=== PATIENT | male | born 1950 | race Caucasian/White ===

== ENCOUNTER 2019-12-17 19:16 | Emergency (ER) | payer MEDICARE ==
[~2019-12-17] VITALS: Ht 170.1 cm; Wt 77.1 kg
[~2019-12-17 19:16] MED LIST: ANAPROX DS550 MG PO; ANTIVERT/2525 MG PO; ANXIETY PILL; CELEXA10 MG PO; CENTRUM SILVER1 EAC3 PO; CHEWABLE ASPIRI81 MG PO; CLARITIN10 MG PO; CLEOCIN HCL150 MG PO; CLINDAMYCIN150 MG PO; EES400 MG PO; FISH OIL CONC1000 M1 PO; FLONASE ALLERG9.9 ML NS; HYDROCODONE BIT1 T11 PO; KENALOG 0.5% CR15 GM T; MEDROL DOSEPAK4 MG PO; MULTIPLE VITAMI1 CAP PO; NKHM; NO DAILY MEDS; PREDNISONE10 MG PO; PROAIR HFA8.5 GM INH; PROBIOTIC250 MG PO; RANITIDINE150 MG PO; SINGULAIR10 M1 PO; VIBRAMYCIN100 MG PO; VICODIN 5/500 505 MG PO; VICODIN ES 7501 TAB PO; ZITHROMAX250 MG PO
[2019-12-17] MEDS ORDERED: PREDNISONE20 M1 PO (21:06)
[2019-12-17] MEDS ORDERED: TESSALON PERLE100 M1 PO (21:06)
[2019-12-17] MEDS ORDERED: PROAIR HFA8.5 GM INH (21:06)
== END 2019-12-17 21:15 | disposition home or self-care (01) ==
LOC: ED 19:16
DX: R05 Cough (principal); K21.9 Gastro-esophageal reflux disease without esophagitis; F17.200 Nicotine dependence, unspecified, uncomplicated; Z88.0 Allergy status to penicillin; Z79.899 Other long term (current) drug therapy; Z89.029 Acquired absence of unspecified finger(s)

== ENCOUNTER 2020-08-23 17:33 | Inpatient (IN) | payer MEDICARE ==
[~2020-08-23] VITALS: Ht 170.1 cm; Wt 75.4 kg
[~2020-08-23 17:33] MED LIST changes: +PREDNISONE20 M1 PO; +TESSALON PERLE100 M1 PO
[2020-08-23 18:26] VITALS: BP 107/62
[2020-08-23 19:34] LABS: CLARITY CLOUDY (CLEAR); COLOR DARK YELLOW (YELLOW)
[2020-08-23 19:35] LABS: BACTERIA 1+; BILIRUBIN 1+; BLOOD 1+ (NEGATIVE); EPITHELIAL CELLS TNTC; GLUCOSE NEGATIVE; KETONE TRACE; LEUKO ESTERASE 2+ (NEGATIVE); NITRITE POSITIVE (NEGATIVE); PH 5.5 (4.5-8.0); SPECIFIC GRAVITY >= 1.030 (1.001-1.030); WBC TNTC wbc/hpf (0-5)
[2020-08-23 20:12] LABS: BASO # 0.1 10*3/uL (0.0-0.1); BASO % 0.7 % (0.0-1.0); EOS # 0.1 10*3/uL (0.0-0.4); EOS % 1.2 % (1.0-4.0); HEMATOCRIT 44.5 % (42.0-52.0); LYMPH # 1.4 10*3/uL (1.3-4.4); LYMPH % 12.7 % (27.0-41.0); MEAN CELL VOLUME 90.6 fl (80.0-94.0); MEAN CORPUSCULAR HGB 29.5 pg (27.0-31.0); MEAN CORPUSCULAR HGB CONC 32.6 g/dl (33.0-37.0); MEAN PLATELET VOLUME 8.8 fl (9.6-12.3); MONO # 1.3 10*3/uL (0.1-1.0); MONO % 11.5 % (3.0-9.0); NEUT % 73.7 % (47.0-73.0); PLATELET COUNT AUTOMATED 427 10*3/uL (130-400); RED BLOOD COUNT 4.91 10*6/uL (4.50-5.90); RED CELL DISTRI WIDTH 13.3 % (0-14.5); WHITE BLOOD COUNT 10.8 10*3/uL (4.8-10.8)
[2020-08-23 20:29] LABS: ALKALINE PHOSPHATASE 98 U/L (45-117); BUN 22 mg/dl (7-24); CHLORIDE 103 mmol/L (98-107); CREATININE 0.99 mg/dL (0.70-1.30); LIPASE 48 U/L (73-393); POTASSIUM 3.9 mmol/L (3.5-5.1); SGOT/AST 11 IU/L (3-35); SGPT/ALT 18 U/L (12-78); SODIUM 136 mmol/L (136-145); TOTAL PROTEIN 7.2 gm/dL (6.4-8.2)
[2020-08-23 20:30] LABS: TROPONIN I < 0.015 ng/ml (<0.045)
--- NOTE | 2020-08-23 20:38 | NUR ---
PATIENT RESTING AT THIS TIME. IN A POSITION OF COMFORT. NOTES THAT HE IS STILL HAVING SOME MILD ABDOMINAL PAIN. STATES MEDICATION HELPED "A LITTLE BIT". CALL LIGHT IN REACH. NS INFUSING.
[2020-08-24 00:03] VITALS: BP 142/74
[2020-08-24 01:05] VITALS: BP 140/94
--- NOTE | 2020-08-24 01:05 | NUR ---
Time: 104 A 70 year old MALE admitted to under services of YAIR BATISTA DO. Pt. arrived via STRETCHER from ER. Chief complaint: ABDOMINAL/R SIDE/BACK PAIN, CONSTIPATION X SEVERAL DAYS, NAUSEA/VOMITING X 2 WEEKS. SHAHRAM CRUZ
[2020-08-24] MEDS ORDERED: PRILOSEC20 M1 PO (01:24)
[2020-08-24] MEDS ORDERED: CENTRUM SILVER1 EAC3 PO (01:45)
--- NOTE | 2020-08-24 01:45 | NUR ---
MED REC UP TO DATE PER PT RECALL.
--- NOTE | 2020-08-24 02:01 | NUR ---
NOTIFIED OF MED REC UP TO DATE. ALSO MADE AWARE OF PT'S REQUEST FOR PODIATRY TO SEE HIM AND CUT TOENAILS. PT HAVING PAIN IN LOWER ABDOMEN. NOW RATING 6/10. DISCUSSED ADMITTING DX ASCITES BUT LFTs WNL. INSTRUCTED TO GIVE TYLENOL FIRST AND IF INEFFECTIVE, CALL.
--- NOTE | 2020-08-24 02:09 | NUR ---
PO TYLENOL AND PO DULCOLAX GIVEN WITH SMALL SIPS OF WATER. PT C/O PAIN IN LOWER ABDOMEN RATED 6/10 AND CONSTIPATION FOR "SEVERAL DAYS."
--- NOTE | 2020-08-24 02:48 | NUR ---
PT REMINDED OF NPO STATUS FOR US ABDOMEN. VERBALIZES UNDERSTANDING.
--- NOTE | 2020-08-24 03:05 | NUR ---
NO FURTHER C/O PAIN FROM PT. EARLIER TYLENOL APPEARS EFFECTIVE.
--- NOTE | 2020-08-24 05:34 | NUR ---
PODIATRY RESIDENT CALLED REGARDING CONSULT. SPOKE TO DR.BRITAIN MELARA. NO NEW ORDERS.
--- NOTE | 2020-08-24 07:48 | NUR ---
24 HR chart check completed.
[2020-08-24 08:00] VITALS: BP 125/84
--- NOTE | 2020-08-24 08:00 | NUR ---
Patient resting quietly with no c/o discomfort. Respirations easy and regular. Vital signs stable. No overt distress. ELIZABETH JARVIS
[2020-08-24 09:15] LABS: ACT PARTIAL THROMBO TIME 32.2 SECONDS (20.0-32.1); INTERNATIONAL NORM RATIO 1.1 (2.0-3.5)
[2020-08-24 12:00] VITALS: BP 118/90
--- NOTE | 2020-08-24 13:30 | NUR ---
BANDAGE D/I TO ANTERIOR LLQ S/P PARACENTISIS.
[2020-08-24 16:00] VITALS: BP 119/75
--- NOTE | 2020-08-24 16:00 | NUR ---
Patient resting quietly with no c/o discomfort. Respirations easy and regular. Vital signs stable. No overt distress. ELIZABETH JARVIS
[2020-08-24 16:23] LABS: BODY FLUID WBC 549 /uL
[2020-08-24 19:05] LABS: BF LYMPHOCYTES 16 %; BF MACROPHAGES 68 %; BF MESOTHELIALS 2 %; BF NEUTROPHILS 2 %
[2020-08-24 20:00] VITALS: BP 132/83; BP 132/99
--- NOTE | 2020-08-24 21:31 | NUR ---
NOTIFIED DR. CAGLE PATIENT IS REQUESTING TUMS.
--- NOTE | 2020-08-24 22:23 | NUR ---
PATIENT MEDICATED WITH TUMS AT THIS TIME FOR HEARTBURN. WILL CONTINUE TO MONITOR.
[2020-08-25] VITALS: BP 112/71
--- NOTE | 2020-08-25 | NUR ---
PATIENT STATES SOLEDAD HELPED
--- NOTE | 2020-08-25 02:05 | NUR ---
PATIENT SLEEPING, NO SIGNS OF DISTRESS. RESPIRATIONS EASY, NON LABORED. BED IN LOWEST POSITION,CALL LIGHT WITHIN REACH. WILL CONTINUE TO MONITOR.
[2020-08-25 06:54] LABS: BASO # 0.1 10*3/uL (0.0-0.1); BASO % 0.7 % (0.0-1.0); EOS # 0.4 10*3/uL (0.0-0.4); LYMPH # 1.4 10*3/uL (1.3-4.4); LYMPH % 15.9 % (27.0-41.0); MEAN CELL VOLUME 89.4 fl (80.0-94.0); MEAN CORPUSCULAR HGB 29.1 pg (27.0-31.0); MEAN CORPUSCULAR HGB CONC 32.6 g/dl (33.0-37.0); MEAN PLATELET VOLUME 9.1 fl (9.6-12.3); MONO # 1.2 10*3/uL (0.1-1.0); MONO % 13.9 % (3.0-9.0); NEUT # 5.7 10*3/uL (2.3-7.9); NEUT % 65.3 % (47.0-73.0); PLATELET COUNT AUTOMATED 377 10*3/uL (130-400); RED BLOOD COUNT 4.36 10*6/uL (4.50-5.90); RED CELL DISTRI WIDTH 13.2 % (0-14.5); WHITE BLOOD COUNT 8.7 10*3/uL (4.8-10.8)
[2020-08-25 07:23] LABS: ALBUMIN 2.6 gm/dl (3.1-4.5); CHLORIDE 103 mmol/L (98-107); CREATININE 0.78 mg/dL (0.70-1.30); POTASSIUM 3.7 mmol/L (3.5-5.1); SGOT/AST 16 IU/L (3-35); SGPT/ALT 21 U/L (12-78); SODIUM 136 mmol/L (136-145)
[2020-08-25 07:31] LABS: ALKALINE PHOSPHATASE 92 U/L (45-117); BUN 14 mg/dl (7-24); CHOLESTEROL 93 mg/dL (<200); HDL CHOLESTEROL 34 mg/dl (40-60); LDL CHOLESTEROL 41 mg/dL (9-159); TOTAL PROTEIN 6.2 gm/dL (6.4-8.2); TRIGLYCERIDES 89 mg/dl (<150); VLDL CHOLESTEROL 18 mg/dL (6-40)
[2020-08-25 08:00] VITALS: BP 126/86
[2020-08-25 08:13] LABS: VITAMIN D, 25-HYDROXY 39.3 ng/mL (30-100)
--- NOTE | 2020-08-25 08:30 | NUR ---
PT RESTING IN BED. RESP-EASY AND REGULAR. TOLERATED ROUTINE MED WITH NO PROBLEM. NO C/O AT THIS TIME. CALL LIGHT IN REACH. SEE SHIFT ASSESSMENT.
--- NOTE | 2020-08-25 10:09 | NUR ---
PT C/O HEARTBURN, MEDICATED WITH TUMS PO PER PRN ORDER, SEE EMAR. CALL LIGHT IN REACH.
--- NOTE | 2020-08-25 11:00 | NUR ---
STATES MEDICATION EFFECTIVE. CALL LIGHT IN REACH.
[2020-08-25 12:00] VITALS: BP 119/87
[2020-08-25 16:00] VITALS: BP 117/75
--- NOTE | 2020-08-25 16:10 | NUR ---
RESTING IN BED. NO C/O AT THIS TIME. CALL LIGHT IN REACH. SEE SHIFT ASSESSMENT.
[2020-08-25 20:00] VITALS: BP 105/72
--- NOTE | 2020-08-25 21:13 | NUR ---
PATIENT C/O HEART BURN. REQUESTING TUMS. MEDICATED AT THIS TIME WITH PRN TUMS. ALSO GIVEN A MILK AND AN ICE CREAM. WILL COTINUE TO MONITOR.
[2020-08-26] VITALS: BP 99/63
--- NOTE | 2020-08-26 01:13 | NUR ---
PATIENT SLEEPING. NO SIGNS OF DISTRESS. VSS. RESPIRATIONS EASY. NON LABORED. BED IN LOWEST POSITION,CALL LIGHT WITHIN REACH. WILL CONTINUE TO MONITOR.
--- NOTE | 2020-08-26 07:30 | NUR ---
PT RESTING IN BED EATING BREAKFAST. RESPS EASY AND NON LABORED. NO S/S OF DISTRESS NOTED. VSS. WHITE BOARD UPDATED. POC DISCUSSED W PT. A/O X3. BOWEL SOUNDS X4 QUADS. PT DENIES ABD PAIN/TENDERNESS. STATES IT IS JUST A GENERAL DISCOMFORT FEELING. NO FURTHER EPISODES OF NAUSEA/VOMITING NOTED. WILL CONTINUE TO MONITOR. CALL LIGHT WITHIN REACH.
[2020-08-26 08:00] VITALS: BP 127/98
--- NOTE | 2020-08-26 09:00 | NUR ---
CM in to see patient. Discussed any home care needs such as nursing or therapy at home upon discharge. He declines home health care services. He states he would like to follow with a liver specialist as both his mother and father dies due to liver problems. His father had Hep C and his mother had cirrhosis. He will reach out to his physician to see about a referral. When medically stable he will be discharged to home. CM will continue to follow for any discharge planning needs.
[2020-08-26] MEDS ORDERED: LASIX20 MG PO (09:47)
[2020-08-26] MEDS ORDERED: CALCIUM CARBON200 MG PO (09:48)
[2020-08-26] MEDS ORDERED: OMEPRAZOLE MAGN20 MG PO (09:48)
--- NOTE | 2020-08-26 10:30 | NUR ---
Discharge instructions reviewed with patient/family. Patient receptive and verbalizes understanding. Follow-up care arranged. Written instructions given to patient/family. TIM SHANE The Discharge Plan/Instructions have been completed. Hep Lock discontinued. Site asymptomatic. Pressure applied. Sterile dressing applied. TIM SHANE
== END 2020-08-26 10:30 | disposition home or self-care (01) | DRG 433 ==
LOC: ED 17:33 → EDHOLD 23:10 → 4E 23:10
PROVIDERS: Emergency Medicine; Internal Medicine; ADMIT Student in an Organized Health Care Education/Training Program; ATTEND Student in an Organized Health Care Education/Training Program
PROC: 0HBRXZZ Excision of Toe Nail, External Approach (ICD-10-PCS; principal; 2020-08-24)
PROC: 0W9G3ZZ Drainage of Peritoneal Cavity, Percutaneous Approach (ICD-10-PCS; principal; 2020-08-24)
DX: K70.31 Alcoholic cirrhosis of liver with ascites (principal); E44.0 Moderate protein-calorie malnutrition; K21.9 Gastro-esophageal reflux disease without esophagitis; R73.9 Hyperglycemia, unspecified; D47.3 Essential (hemorrhagic) thrombocythemia; R82.71 Bacteriuria; F17.210 Nicotine dependence, cigarettes, uncomplicated; B35.1 Tinea unguium; Z68.26 Body mass index [BMI] 26.0-26.9, adult; F32.9 Major depressive disorder, single episode, unspecified; Z88.0 Allergy status to penicillin; Z79.51 Long term (current) use of inhaled steroids; Z79.899 Other long term (current) drug therapy

== ENCOUNTER 2020-08-30 18:35 | Observation (INO) | payer MEDICARE ==
[~2020-08-30] VITALS: Ht 170.1 cm; Wt 74.8 kg
[~2020-08-30 18:35] MED LIST changes: +CALCIUM CARBON200 MG PO; +LASIX20 MG PO; +OMEPRAZOLE MAGN20 MG PO; +PRILOSEC20 M1 PO
[2020-08-30 18:49] VITALS: BP 108/90
[2020-08-30 20:51] LABS: HEMATOCRIT 45.9 % (42.0-52.0); MEAN CELL VOLUME 88.3 fl (80.0-94.0); MEAN CORPUSCULAR HGB 29.2 pg (27.0-31.0); MEAN CORPUSCULAR HGB CONC 33.1 g/dl (33.0-37.0); MEAN PLATELET VOLUME 8.9 fl (9.6-12.3); PLATELET COUNT AUTOMATED 511 10*3/uL (130-400); RED CELL DISTRI WIDTH 13.3 % (0-14.5); WHITE BLOOD COUNT 9.1 10*3/uL (4.8-10.8)
[2020-08-30 20:55] LABS: CLARITY Cloudy (Clear); COLOR Dark Yellow (Yellow)
[2020-08-30 20:56] LABS: BILIRUBIN 1+; BLOOD Negative (Negative); GLUCOSE Negative; KETONE Negative; LEUKO ESTERASE 1+ (Negative); NITRITE Negative (Negative); SPECIFIC GRAVITY 1.025 (1.001-1.030)
[2020-08-30 20:58] LABS: RBC 0-2 rbc/hpf (0-2)
[2020-08-30 20:59] LABS: BACTERIA TRACE; EPITHELIAL CELLS 16-20; HYALINE CAST TNTC; MUCOUS TRACE; WBC 21-30 wbc/hpf (0-5)
[2020-08-30 21:02] LABS: ACT PARTIAL THROMBO TIME 29.5 SECONDS (20.0-32.1); INTERNATIONAL NORM RATIO 1.1 (2.0-3.5)
[2020-08-30 21:07] LABS: CREATININE 1.42 mg/dL (0.70-1.30); POTASSIUM 3.7 mmol/L (3.5-5.1); TOTAL PROTEIN 7.2 gm/dL (6.4-8.2)
[2020-08-30 21:14] LABS: TOTAL CELLS COUNTED 100 #CELLS
[2020-08-30 21:17] LABS: PLATELET SUFFICIENCY HIGH (NORMAL)
--- NOTE | 2020-08-30 21:20 | NUR ---
PT. RESTING IN BED WATCHING TV. IN NO DISTRESS, RR EASY AND NON LABORED. CALL LIGHT IN REACH. WILL CONT TO MONITOR.
[2020-08-30 22:02] VITALS: BP 110/76
--- NOTE | 2020-08-30 22:03 | NUR ---
PT. RESTING WATCHING TV. CALL LIGHT IN REACH. IN NO DISTRESS, RR EASY AND NONLABORED. WILL CONT TO MONITOR.
--- NOTE | 2020-08-30 22:32 | NUR ---
Time: 2232 A 70 year old MALE admitted to under services of NISHA HERRERA DO, Pt. arrived via stretcher from ER. Chief complaint: ABD PAIN. LEDA ANDERSON
[2020-08-30 22:33] VITALS: BP 121/80
--- NOTE | 2020-08-30 22:53 | NUR ---
DR CAGLE AWARE OF [employer]ME SE[employer] CALLING AND STATING THAT THE RADIOLOGIST RECOMMENDS HYDRATING BEFORE AND AFTER SCAN.
--- NOTE | 2020-08-30 23:00 | NUR ---
ABDOMINAL CIRCUMFERENCE 47 CM
--- NOTE | 2020-08-31 00:05 | NUR ---
DR CAGLE STATES PATIENT DOES NOT HAVE TO DRINK SECOND BOTTLE OF CT CONTRAST DUE TO NAUSEA
--- NOTE | 2020-08-31 02:47 | NUR ---
MEDICATED WITH PRN ZOFRAN FOR C/O NAUSEA AND VOMITTING. WILL MONITOR
[2020-08-31 03:29] LABS: CREATININE 1.45 mg/dL (0.70-1.30); POTASSIUM 3.6 mmol/L (3.5-5.1)
--- NOTE | 2020-08-31 03:30 | NUR ---
MEDICATION EFFECTIVE PER PATIENT
--- NOTE | 2020-08-31 05:08 | NUR ---
PATIENT HAD SMALL GREEN EMESIS.
[2020-08-31 06:32] LABS: HEMATOCRIT 44.8 % (42.0-52.0); MEAN CELL VOLUME 88.5 fl (80.0-94.0); MEAN CORPUSCULAR HGB 29.1 pg (27.0-31.0); MEAN CORPUSCULAR HGB CONC 32.8 g/dl (33.0-37.0); MEAN PLATELET VOLUME 9.1 fl (9.6-12.3); PLATELET COUNT AUTOMATED 477 10*3/uL (130-400); RED BLOOD COUNT 5.06 10*6/uL (4.50-5.90); RED CELL DISTRI WIDTH 13.3 % (0-14.5); WHITE BLOOD COUNT 8.4 10*3/uL (4.8-10.8)
[2020-08-31 06:33] LABS: ALBUMIN 2.9 gm/dl (3.1-4.5); BUN 32 mg/dl (7-24); CHLORIDE 92 mmol/L (98-107); CREATININE 1.32 mg/dL (0.70-1.30); POTASSIUM 3.5 mmol/L (3.5-5.1); SGOT/AST 27 IU/L (3-35); SGPT/ALT 44 U/L (12-78); SODIUM 131 mmol/L (136-145)
[2020-08-31 06:35] LABS: ALKALINE PHOSPHATASE 97 U/L (45-117); TOTAL PROTEIN 6.8 gm/dL (6.4-8.2)
[2020-08-31 07:03] LABS: BASOPHILS 2 % (0-1); BURR CELLS FEW; PLATELET SUFFICIENCY HIGH (NORMAL); TOTAL CELLS COUNTED 100 #CELLS
[2020-08-31 07:04] LABS: POLYCHROMASIA SLIGHT
[2020-08-31 08:00] VITALS: BP 128/83
--- NOTE | 2020-08-31 08:00 | NUR ---
IN TO ROOM. PATIENT AWAKE, ALERT AND ORIENTED. PT DENIES ANY PAIN BUT COMPLAINS OF NAUSEA AT THIS TIME. RESPIRATIONS ARE EASY AND REGULAR, NO SOB NOTED. PT ABLE TO REPOSITION SELF AND IS ENCOURAGED TO DO SO. BED IN LOWEST LOCKED POSITION AND CALL LIGHT WITHIN REACH. WILL CONTINUE TO MONITOR.
--- NOTE | 2020-08-31 08:12 | NUR ---
PT MEDICATED WITH PRN ZOFRAN FOR NAUSEA AT THIS TIME. WILL MONITOR FOR EFFECTIVENESS.
--- NOTE | 2020-08-31 09:00 | NUR ---
PT STATES ZOFRAN WAS EFFECTIVE.
--- NOTE | 2020-08-31 09:00 | NUR ---
Rattan Worker in to talk to patient. Patient states lives at home with . There are 14 steps in the home. Physician: chung galvan Pharmacy: [facility] services: none Patient's level of ADLs: INDEPENDENT Patient has working utilities: all working DME: none Follow-up physician's appointment after d/c: will be made by hospitalist nurse director upon discharge Does patient want to access PORTAL?: no Discharge plan discussed with patient, he states he lives at home with , is independent in adls and ambulation but states he feels weak at this time, discussed with him a short term assisted for 5 days of therapy and 24 hour care. he declined. also discussed [facility] and educated him on the services they provide, he was agreeable to this, given choice of companies he chose [facility], will send a referral to [facility] for when patient is discharged. case management will follow. IRASEMA TAYLOR
--- NOTE | 2020-08-31 11:56 | NUR ---
case management faxed patient's [facility] order and face to face
[2020-08-31 12:00] VITALS: BP 122/89
[2020-08-31 16:00] VITALS: BP 104/81
--- NOTE | 2020-08-31 17:30 | NUR ---
PT COMPLAINS OF DIARRHEA AT THIS TIME. STATES HE HAS HAD [address] MONACO NOTIFIED.
--- NOTE | 2020-08-31 19:19 | NUR ---
RECIEVED REPORT FROM PREVIOUS RN.
--- NOTE | 2020-08-31 19:48 | NUR ---
ASSUMED CARE OF PATIENT. PATIENT IS AAOX3 RESTING IN BED WITH EASY AND REGULAR RESPERS ON ROOM AIR. ASSESSMENT IS COMPLETE WITH NO C/O OR S/S OF DISTRESS NOTED AT THIS TIME. BED IS LOW, LOCKED, AND CALL LIGHT IS WITHIN REACH. WILL CONTNINUE TO MONITOR, SEE INTERVENTIONS.
[2020-08-31 20:00] VITALS: BP 114/71
--- NOTE | 2020-08-31 20:49 | NUR ---
ATTEMPTED TO CONTACT RESIDENT FOR PATIENT C/O DIARRHEA. WILL TRY AGAIN.
--- NOTE | 2020-08-31 21:30 | NUR ---
DR. CAGLE CONTACTED. PATIENT C/O DIARRHEA. ORDERED TO OBTAIN STOOL SAMPLE.
[2020-09-01] VITALS: BP 100/61
--- NOTE | 2020-09-01 06:00 | NUR ---
PATIENT HAS NOT HAD BOWEL MOVEMENT ALL SHIFT.
[2020-09-01 08:00] VITALS: BP 100/69
--- NOTE | 2020-09-01 08:15 | NUR ---
PT RESTING IN BED. RESP-EASY AND REGULAR. NO C/O AT THIS TIME. CALL LIGHT IN REACH. SEE SHIFT ASSESSMENT.
--- NOTE | 2020-09-01 09:00 | NUR ---
case management visits with patient, patient was eating and tolerating breakfast. he stated he will return home when discharged. case management will notify [facility] when patient is discharged
[2020-09-01 10:18] LABS: BASO # 0.1 10*3/uL (0.0-0.1); EOS # 0.4 10*3/uL (0.0-0.4); EOS % 3.9 % (1.0-4.0); LYMPH # 0.8 10*3/uL (1.3-4.4); LYMPH % 8.2 % (27.0-41.0); MEAN CELL VOLUME 90.1 fl (80.0-94.0); MEAN CORPUSCULAR HGB 29.6 pg (27.0-31.0); MEAN CORPUSCULAR HGB CONC 32.8 g/dl (33.0-37.0); MONO % 10.5 % (3.0-9.0); NEUT # 7.3 10*3/uL (2.3-7.9); NEUT % 76.1 % (47.0-73.0); PLATELET COUNT AUTOMATED 380 10*3/uL (130-400); RED BLOOD COUNT 4.33 10*6/uL (4.50-5.90); RED CELL DISTRI WIDTH 13.6 % (0-14.5); WHITE BLOOD COUNT 9.6 10*3/uL (4.8-10.8)
[2020-09-01 10:38] LABS: ALBUMIN 2.5 gm/dl (3.1-4.5); ALKALINE PHOSPHATASE 90 U/L (45-117); BUN 25 mg/dl (7-24); CHLORIDE 96 mmol/L (98-107); CREATININE 1.15 mg/dL (0.70-1.30); POTASSIUM 3.4 mmol/L (3.5-5.1); SGOT/AST 23 IU/L (3-35); SGPT/ALT 36 U/L (12-78); SODIUM 131 mmol/L (136-145)
[2020-09-01 12:00] VITALS: BP 111/81
[2020-09-01] MEDS ORDERED: ZOFRAN4 MG PO (12:27)
[2020-09-01] MEDS ORDERED: FLAGYL500 MG PO (12:27)
[2020-09-01] MEDS ORDERED: CIPRO500 MG PO (12:27)
--- NOTE | 2020-09-01 13:38 | NUR ---
Discharge instructions reviewed with patient/family. Patient receptive and verbalizes understanding. Follow-up care arranged. Written instructions given to patient/family. [place] REMOVED. ESCORTED VIA WHEELCHAIR FOR DISCHARGE. GREG HUMPHREY
== END 2020-09-01 13:38 | disposition home or self-care (01) ==
LOC: ED 18:35 → EDHOLD 21:38 → 4E 22:07
PROVIDERS: Emergency Medicine; Family Medicine; Internal Medicine; ADMIT Internal Medicine; ATTEND Internal Medicine
DX: E87.1 Hypo-osmolality and hyponatremia (principal); K52.9 Noninfective gastroenteritis and colitis, unspecified; N17.0 Acute kidney failure with tubular necrosis; K70.31 Alcoholic cirrhosis of liver with ascites; R82.71 Bacteriuria; R00.0 Tachycardia, unspecified; E44.0 Moderate protein-calorie malnutrition; R73.9 Hyperglycemia, unspecified; D47.3 Essential (hemorrhagic) thrombocythemia; D72.810 Lymphocytopenia; K74.60 Unspecified cirrhosis of liver; K21.9 Gastro-esophageal reflux disease without esophagitis; E87.8 Other disorders of electrolyte and fluid balance, not elsewhere classified; F32.9 Major depressive disorder, single episode, unspecified; J30.2 Other seasonal allergic rhinitis

== ENCOUNTER 2020-09-12 08:57 | Inpatient (IN) | payer MEDICARE ==
[~2020-09-12] VITALS: Ht 170.1 cm; Wt 70.0 kg
[~2020-09-12 08:57] MED LIST changes: +CIPRO500 MG PO; +FLAGYL500 MG PO; +ZOFRAN4 MG PO
[2020-09-12 09:03] VITALS: BP 103/81
[2020-09-12 09:34] LABS: BASO # 0.1 10*3/uL (0.0-0.1); BASO % 0.8 % (0.0-1.0); EOS # 0.1 10*3/uL (0.0-0.4); EOS % 0.7 % (1.0-4.0); HEMATOCRIT 43.6 % (42.0-52.0); LYMPH # 1.3 10*3/uL (1.3-4.4); MEAN CELL VOLUME 87.7 fl (80.0-94.0); MEAN PLATELET VOLUME 8.4 fl (9.6-12.3); MONO # 1.2 10*3/uL (0.1-1.0); NEUT # 9.3 10*3/uL (2.3-7.9); NEUT % 77.2 % (47.0-73.0); PLATELET COUNT AUTOMATED 535 10*3/uL (130-400); RED BLOOD COUNT 4.97 10*6/uL (4.50-5.90); RED CELL DISTRI WIDTH 13.9 % (0-14.5)
[2020-09-12 09:45] LABS: INTERNATIONAL NORM RATIO 1.1 (2.0-3.5)
[2020-09-12 09:52] LABS: ALBUMIN 2.7 gm/dl (3.1-4.5); ALKALINE PHOSPHATASE 76 U/L (45-117); BUN 23 mg/dl (7-24); CHLORIDE 94 mmol/L (98-107); CREATININE 1.59 mg/dL (0.70-1.30); LIPASE 132 U/L (73-393); POTASSIUM 4.1 mmol/L (3.5-5.1); SGOT/AST 21 IU/L (3-35); SGPT/ALT 20 U/L (12-78); SODIUM 129 mmol/L (136-145); TOTAL PROTEIN 6.8 gm/dL (6.4-8.2)
[2020-09-12 09:58] LABS: TROPONIN I < 0.015 ng/ml (<0.045)
[2020-09-12] MEDS ORDERED: ALDACTONE25 M1 PO (11:45)
[2020-09-12] MEDS ORDERED: BAYER ASPIRIN C81 MG PO (11:46)
[2020-09-12] MEDS ORDERED: COLACE100 MG PO (11:48)
--- NOTE | 2020-09-12 15:15 | NUR ---
Time: 1514 A 70 year old MALE admitted to 5E under services of NISHA HERRERA DO, Pt. arrived via ambulatory from ER. Chief complaint: ABDOMINL PAIN, GENERALIZED. JAYLYN GAVIRIA
[2020-09-12 16:00] VITALS: BP 122/87
--- NOTE | 2020-09-12 16:37 | NUR ---
DR. CLARKE'S ANSWERING SERVICE NOTIFIED OF CONSULT.
[2020-09-12] MEDS ORDERED: LASIX20 MG PO (18:01)
[2020-09-12 18:08] LABS: BODY FLUID WBC 218 /uL
[2020-09-12 19:27] LABS: BF LYMPHOCYTES 34 %; BF MACROPHAGES 40 %; BF MESOTHELIALS 6 %; BF NEUTROPHILS 8 %
[2020-09-12 20:00] VITALS: BP 117/73
--- NOTE | 2020-09-12 21:21 | NUR ---
24 HR chart check completed.
--- NOTE | 2020-09-12 22:00 | NUR ---
RESTING WITH HOB ELEVATED. RESPIRATIONS EASY. LUNGS DIMINISHED, CLEAR. PULSE OX 97% RA. ABD DISTENDED WITH HYPO BOWEL SOUNDS; BANDAID MAINTAINED R ABD. TRACE BLE EDEMA. CALL LIGHT WITHIN REACH. NO VOICED COMPLAINTS
--- NOTE | 2020-09-12 22:13 | NUR ---
MEDICATED WITH MORPHINE IV PER PRN ORDER FOR COMPLAINTS OF ABD PAIN RATING A 6. ALSO MEDICATED WITH RESTORIL TO ASSIST WITH SLEEP. WILL MONITOR
--- NOTE | 2020-09-12 23:00 | NUR ---
MEDS APPEAR EFFECTIVE. SLEEPING. RESPIRATIONS EASY. CALL LIGHT WITHIN REACH
[2020-09-12 23:16] LABS: BILIRUBIN Negative (Negative); BLOOD Negative (Negative); CLARITY Cloudy (Clear); COLOR Yellow (Yellow); GLUCOSE Negative (Negative); KETONE Trace (Negative); LEUKO ESTERASE Trace (Negative); NITRITE Negative (Negative); SPECIFIC GRAVITY 1.015 (1.001-1.030)
[2020-09-12 23:25] LABS: BACTERIA 1+; WBC 51-100 wbc/hpf (0-5)
[2020-09-13] VITALS: BP 106/75
--- NOTE | 2020-09-13 | NUR ---
SLEEPING. NO DISTRESS NOTED. RESPIRATIONS EASY. VSS. CALL LIGHT WITHIN REACH
--- NOTE | 2020-09-13 06:19 | NUR ---
MEDICATED WITH MORPHINE IV PER PRN ORDER FOR C/O ABD PAIN RATING A 6. WILL MONITOR
[2020-09-13 06:23] LABS: BASO # 0.1 10*3/uL (0.0-0.1); BASO % 0.4 % (0.0-1.0); EOS # 0.1 10*3/uL (0.0-0.4); EOS % 0.4 % (1.0-4.0); HEMATOCRIT 41.4 % (42.0-52.0); LYMPH # 0.9 10*3/uL (1.3-4.4); LYMPH % 6.5 % (27.0-41.0); MEAN CELL VOLUME 88.7 fl (80.0-94.0); MEAN CORPUSCULAR HGB 29.8 pg (27.0-31.0); MEAN CORPUSCULAR HGB CONC 33.6 g/dl (33.0-37.0); MEAN PLATELET VOLUME 8.6 fl (9.6-12.3); MONO # 1.5 10*3/uL (0.1-1.0); MONO % 10.3 % (3.0-9.0); NEUT # 11.8 10*3/uL (2.3-7.9); NEUT % 82.1 % (47.0-73.0); PLATELET COUNT AUTOMATED 504 10*3/uL (130-400); RED BLOOD COUNT 4.67 10*6/uL (4.50-5.90); RED CELL DISTRI WIDTH 14.1 % (0-14.5); WHITE BLOOD COUNT 14.4 10*3/uL (4.8-10.8)
[2020-09-13 06:40] LABS: ALBUMIN 2.4 gm/dl (3.1-4.5); ALKALINE PHOSPHATASE 69 U/L (45-117); BUN 26 mg/dl (7-24); CHLORIDE 95 mmol/L (98-107); CREATININE 1.36 mg/dL (0.70-1.30); FREE T4 1.35 ng/dl (0.76-1.46); POTASSIUM 4.2 mmol/L (3.5-5.1); SGOT/AST 23 IU/L (3-35); SGPT/ALT 17 U/L (12-78); SODIUM 130 mmol/L (136-145); TOTAL PROTEIN 6.3 gm/dL (6.4-8.2)
--- NOTE | 2020-09-13 06:54 | NUR ---
STATES EARLIER MEDS HELPING. CALL LIGHT WITHIN REACH. NO FURTHER VOICED COMPLAINTS
[2020-09-13 08:00] VITALS: BP 103/73
--- NOTE | 2020-09-13 09:00 | NUR ---
Radio Time Sales Supervisor in to talk to patient. Patient states lives at home with and son. There are 14 steps in the home. Physician: veronique hendrickson Pharmacy: [facility] health services: [facility] Patient's level of ADLs: MODERATE ASSIST Patient has working utilities: all working DME: cane Follow-up physician's appointment after d/c: will be made by hospitalist nurse director upon discharge Does patient want to access PORTAL?: no Discharge plan discussed with patient, he states he lives at home with and son, he states he uses a cane for ambulation and needs minimal assistance with adls, he currently has [facility] seeing him at home. discussed with him being in the hospital frequently and possibly not being able to properly care for self at home and not ambulating well, going to a short term penitentiary for 5 days of therapy and 24 hour care prior to returning home. patient stated he didn't want to go to a penitentiary facility he would rather return home and continue his [facility]. case management will discuss this with patient again after physical therapy has evaluated him. IRASEMA TAYLOR
[2020-09-13 12:00] VITALS: BP 106/68
--- NOTE | 2020-09-13 14:00 | NUR ---
PHYSICAL THERAPY Physical Therapy evaluation completed on with full evaluation to follow. Recommend physical therapy per plan of care, pt could benefit from short term rehab due to impaired balance decreased endurance but states he has family with him at home, someone there "at all time" and agreeable to HH. If to go home recommend 24 hr care with family HH f/u pt has abhilashe did not want to utilize FWW at this time Thank you for this referral. Sabrina Ross PT
--- NOTE | 2020-09-13 14:05 | NUR ---
Occupational Therapy evaluation completed on five with full evaluation to follow. Recommend occupational therapy per plan of care and SNF versus home with HH with 24/06 supervision pending patient progression upon discharge. Thank you for this referral. Belkys Stiles OTR/L
[2020-09-13 16:00] VITALS: BP 111/79
[2020-09-13 20:00] VITALS: BP 106/75
--- NOTE | 2020-09-13 20:04 | NUR ---
C/O PAIN RATED "10" LOWER ABD MORPHINE GIVEN PER ORDER FOR PAIN SLOW IV PUSH. SEE MAR. PATIENT VOMITED DARK GREEN EMESIS ON FLOOR. PT. STATED HE'S HAD TO DO THAT ALL DAY.
--- NOTE | 2020-09-13 20:16 | NUR ---
PATIENT CLEANED UP AND ZOFRAN GIVEN PER ORDER FOR NAUSEA VOMITING.
--- NOTE | 2020-09-13 21:00 | NUR ---
MORPHINE AND ZOFRAN EFFECTIVE FOR PAIN AND NAUSEA PER PATIENT.
--- NOTE | 2020-09-13 23:15 | NUR ---
RESTORIL NOT COMPLETELY EFFECTIVEFOR INSOMNIA PATIENT STILL AWAKE OFF AND ON. HAVING MOIST NON PRODUCTIV COUGH.
--- NOTE | 2020-09-13 23:58 | NUR ---
24 HR chart check completed.
[2020-09-14] VITALS: BP 99/69
--- NOTE | 2020-09-14 02:32 | NUR ---
C/O NAUSEA PATIENT SAID HE HAD EMESIS ABOUT 10 MINUTES AGO. ZOFRAN GIVEN PER ORDER FOR NAUSEA. SEE MAR.
--- NOTE | 2020-09-14 03:30 | NUR ---
ZOFRAN EFFECTIVE FOR NAUSEA PER PT.
--- NOTE | 2020-09-14 04:17 | NUR ---
PATIENT SLEEPING NOT ACUTE DISTRESS NOTED.
--- NOTE | 2020-09-14 05:26 | NUR ---
C/O LOWER ABD PAIN RATED "8" COMES AND GOES PER PT. MORPHINE GIVEN VERY SLOW IV PUSH PER ORDER SEE MAR.
--- NOTE | 2020-09-14 06:25 | NUR ---
MORPHINE EFFECTIVE FOR LOWER ABD PAIN PER PT.
[2020-09-14 06:28] LABS: BUN 31 mg/dl (7-24); CHLORIDE 91 mmol/L (98-107); CREATININE 1.36 mg/dL (0.70-1.30); POTASSIUM 4.1 mmol/L (3.5-5.1); SODIUM 130 mmol/L (136-145)
[2020-09-14 06:49] LABS: HEMATOCRIT 42.1 % (42.0-52.0); MEAN CELL VOLUME 88.1 fl (80.0-94.0); MEAN CORPUSCULAR HGB 29.5 pg (27.0-31.0); MEAN CORPUSCULAR HGB CONC 33.5 g/dl (33.0-37.0); MEAN PLATELET VOLUME 8.7 fl (9.6-12.3); PLATELET COUNT AUTOMATED 539 10*3/uL (130-400); RED BLOOD COUNT 4.78 10*6/uL (4.50-5.90); WHITE BLOOD COUNT 13.5 10*3/uL (4.8-10.8)
[2020-09-14 07:46] LABS: BURR CELLS MODERATE; TOTAL CELLS COUNTED 100 #CELLS
[2020-09-14 07:48] LABS: PLATELET SUFFICIENCY HIGH (NORMAL); POLYCHROMASIA SLIGHT
[2020-09-14 08:00] VITALS: BP 108/68
--- NOTE | 2020-09-14 09:00 | NUR ---
OT NOTE Pt was seen this A.M. 1:1 for 25 minute OT session. Upon arrival pt was supine in bed. Pt identified by name and and had complaints of low back pain stating "it comes and goes, it's always been that way." Pt transferred supine to sit EOB with SBA. While sitting EOB pt donned B socks with SBA. Sit to stand completed from bed level with SBA followed by functional mobility to the bathroom with SBA. There he transferred on/off standard commode with SBA and use of grab bar for UE support. Clothing management completed with SBA and toilet hygiene completed with supervision while seated. Pt then stood sink side while completing upper body and lower body bathing with SBA. Pt required one seated rest break throughout due to fatigue. After his seated rest pt then stood sink side while completing oral care with SBA. Functional mobility then completed to the recliner with SBA. There he was left with call light in hand, tray table in place, and phone in reach. Continue with POC as able. JOANNE Brooke/Debra
--- NOTE | 2020-09-14 09:00 | NUR ---
case management visits with patient, patient stated he is not feeling weel, discussed with him being discharged to a short term halfway for 24 hour care and physical therapy 5 days a week prior to returning home. he was agreeable to this. given choice of facilities [facility]. patient information will [facility] to [facility]. he will need a three night stay per medicare and will be eligible to go to [facility] on 09/15/20 if stable or any time after that. case management also talked to patient's regarding discharge plans and she also was in agreement with this plan. case management will follow
--- NOTE | 2020-09-14 09:47 | NUR ---
Patient is requesting a referral to [facility], contacted facility and faxed full referral. C-19 results are negative. Waiting on review/acceptance, requires a 3 night stay.
--- NOTE | 2020-09-14 11:05 | NUR ---
PHYSICAL THERAPY Patient seen this am 1;1 for therapy visit and was supine in bed upon therapist arrival and identified by name / . Patient reports no c/o's pain at this time and very soft spoken this morning making it very [facility]. Patient transfers supine to sit EOB and sit to stand SBA x 1, then ambulates ad amelia in room, no AD, SBA 40' x 2, demonstrating initial "waddling" gait pattern. Patient able to improve stride after v/c demonstrating no LOB during 180 turn arounds. Patient returned to supine in bed with only mild fatigue and remained in bed with call light, tray table, telephone. Will continue per POC as tolerated, total treatment time 15 minutes. Densi Loredo, CLINICAL LABORATORY MEDICAL DIRECTOR
--- NOTE | 2020-09-14 11:48 | NUR ---
CALLED IN CONSULT TO .
[2020-09-14 12:00] VITALS: BP 103/76
[2020-09-14 16:00] VITALS: BP 105/79
--- NOTE | 2020-09-14 17:56 | NUR ---
PATIENT MEDICATED WITH ZOFRAN AT THIS TIME FOR COMPLAINTS OF NAUSEA AT THIS TIME. WILL MONITOR FOR EFFECTIVENESS.
[2020-09-14 20:00] VITALS: BP 104/70
--- NOTE | 2020-09-14 20:19 | NUR ---
PATIENT MEDICATED WITH MORPHINE FOR COMPLAINTS OF ABDOMINAL PAIN. WILL MONITOR FOR EFFECTIVENESS.
--- NOTE | 2020-09-14 21:00 | NUR ---
MORPHINE EFFECTIVE. PATIENT IN BED SLEEPING AT THIS TIME. NO SIGNS OR SYMPTOMS OF DISTRESS NOTED. CALL LIGHT IN REACH.
[2020-09-15] VITALS: BP 97/74
--- NOTE | 2020-09-15 02:12 | NUR ---
PATIENT MEDICATED WITH MORPHINE FOR COMPLAINTS OF ABDOMINAL PAIN. WILL MONITOR FOR EFFECTIVENESS. CALL LIGHT IN REACH.
--- NOTE | 2020-09-15 03:00 | NUR ---
MORPHINE EFFECTIVE. PATIENT IN BED SLEEPING AT THIS TIME. NO SIGNS OR SYMPTOMS OF DISTRESS NOTED.
[2020-09-15 06:25] LABS: HEMATOCRIT 40.9 % (42.0-52.0); MEAN CELL VOLUME 87.2 fl (80.0-94.0); MEAN CORPUSCULAR HGB 29.4 pg (27.0-31.0); MEAN CORPUSCULAR HGB CONC 33.7 g/dl (33.0-37.0); MEAN PLATELET VOLUME 8.6 fl (9.6-12.3); PLATELET COUNT AUTOMATED 535 10*3/uL (130-400); RED BLOOD COUNT 4.69 10*6/uL (4.50-5.90); RED CELL DISTRI WIDTH 13.9 % (0-14.5); WHITE BLOOD COUNT 9.6 10*3/uL (4.8-10.8)
[2020-09-15 06:45] LABS: ALBUMIN 2.3 gm/dl (3.1-4.5)
[2020-09-15 06:54] LABS: TOTAL CELLS COUNTED 100 #CELLS
[2020-09-15 06:55] LABS: BURR CELLS FEW
[2020-09-15 06:56] LABS: PLATELET SUFFICIENCY HIGH (NORMAL)
[2020-09-15 06:58] LABS: CEA 3.2 ng/mL; CREATININE 1.56 mg/dL (0.70-1.30); TOTAL PROTEIN 6.4 gm/dL (6.4-8.2)
--- NOTE | 2020-09-15 07:25 | NUR ---
Patient accepted to [facility], covid negative, HENS completed online, 3 night stay complete, patient can go when medically stable for discharge.
[2020-09-15 08:00] VITALS: BP 107/65
--- NOTE | 2020-09-15 09:00 | NUR ---
case management visits with patient, he has been referred to and accepted by [facility] and has met his three night stay. patient scheduled for a colo today. case management will follow
--- NOTE | 2020-09-15 09:57 | NUR ---
MORPHINE GIVEN FOR C/O LLQ PAIN, RATES 9/10 ON PAIN SCALE. WILL MONITOR.
--- NOTE | 2020-09-15 11:00 | NUR ---
MORPHINE EFFECTIVE PER PT.
--- NOTE | 2020-09-15 11:18 | NUR ---
ZOFRAN GIVEN AT THIS TIME FOR C/O NAUSEA. WILL MONITOR.
[2020-09-15 12:00] VITALS: BP 106/68
--- NOTE | 2020-09-15 12:20 | NUR ---
KERON HELPING, NOT FULLY EFFECTIVE PER PT.
--- NOTE | 2020-09-15 12:45 | NUR ---
PHYSICAL THERAPY Patient seen this pm 1:1 for therapy visit and was supine in bed upon therapist arrival. Patient identified by name / and reports feeling increased bouts of nausea. Patient stated he had just received some medicine from his Nurse and reports no c/o's pain at this time. Patient transfers supine to sit EOB SBA, needing a minute or so of static EOB sit to collect himself. Patient completed sit to stand SBA and ambulated 15'x 1 to bathroom, then additional 40'x 1, no AD, SBA, demonstrating very slow, cautious gait pattern. Patient returned to supine in bed reporting no new c/o's and remained with call light, tray table, telephone. Will continue per POC as tolerated, total treatment time 14 minutes. Denis Loredo, SPOOLING OPERATOR
--- NOTE | 2020-09-15 12:45 | NUR ---
OT NOTE Pt was seen this P.M. 1:1 for 15 minute OT session. Upon arrival pt was supine in bed. Pt identified by name and and had complaints of abdominal pain stating "it comes and goes." Pt transferred supine to sit EOB with SBA. Sit to stand completed from bed level with SBA followed by functional mobility to the bathroom with SBA. There he transferred on/off standard commode with SBA while managing clothing. Functional mobility was then completed back to the EOB. There he completed BUE AROM over all planes of motion for 1 X 10 to increase and restore maximum functional use. Pt was left supine in bed with call light in hand, tray table in place, and phone in reach. Continue with POC as able. JOANNE Brooke/Debra
[2020-09-15 16:00] VITALS: BP 105/72
--- NOTE | 2020-09-15 16:46 | NUR ---
MORPHINE GIVEN FOR C/O ABDM PAIN. RATES 5/10 ON PAIN SCALE. WILL MONITOR.
--- NOTE | 2020-09-15 17:20 | NUR ---
MORPHINE EFFECTIVE PER PT.
[2020-09-15 20:00] VITALS: BP 110/74
--- NOTE | 2020-09-15 20:00 | NUR ---
PATIENT ENCOURAGED TO DRINK GO-LYTELY. SAID HE WOULD TRY.
[2020-09-16] VITALS: BP 106/71
[2020-09-16 05:06] LABS: HEP B CORE AB, IGM Negative (Negative); HEPATITIS B SURFACE AG Negative (Negative); HEPATITIS C VIRUS ANTIBODY <0.1 s/co (0.0-0.9)
[2020-09-16 06:44] LABS: HEMATOCRIT 41.7 % (42.0-52.0); MEAN CELL VOLUME 86.7 fl (80.0-94.0); MEAN CORPUSCULAR HGB 28.7 pg (27.0-31.0); MEAN CORPUSCULAR HGB CONC 33.1 g/dl (33.0-37.0); MEAN PLATELET VOLUME 8.9 fl (9.6-12.3); PLATELET COUNT AUTOMATED 598 10*3/uL (130-400); RED BLOOD COUNT 4.81 10*6/uL (4.50-5.90); RED CELL DISTRI WIDTH 13.6 % (0-14.5); WHITE BLOOD COUNT 8.2 10*3/uL (4.8-10.8)
[2020-09-16 07:03] LABS: CREATININE 1.69 mg/dL (0.70-1.30)
[2020-09-16 07:13] LABS: BASOPHILS 1 % (0-1); TOTAL CELLS COUNTED 100 #CELLS
[2020-09-16 07:14] LABS: BURR CELLS FEW; OVALOCYTES FEW; PLATELET SUFFICIENCY HIGH (NORMAL)
[2020-09-16 08:00] VITALS: BP 103/73
--- NOTE | 2020-09-16 08:40 | NUR ---
PHYSICAL THERAPY PT IS LAYIN SUPINE IN BED UPON ARRIVAL. PT IS AGREEABLE TO TX. PT IS IDENTIFIED BY AND NAME. PT C/O ABDOMINAL PAIN. PT BED MOBILITY SBA W/ VERY SLOW MOVEMENTS, OCCASIONAL C/O LIGHTHEADEDNESS. GT TRAINIG W/IN ROOM W/O AD D/T SPC UNAVAILABLE AND PT REFUSES TO USE WHEELED WALKER AT THIS TIME. GT W/O AD REQUIRES CGA W/ V/C ON IMPROVING GT PATTERN BY INCREASING STEP LENGTH, WIDENING LAUREL AND INCREASING HS D/T PT PRESENTS W/ SHUFFLING GT PATTERN AND INCREASED UNSTEADINESS NOTED, ESPECIALLY W/ TURNING. PT REQUIRES PROLOGNED REST BREAK POST ACTIVITY D/T C/O FATIGUE AND INCREASED ABDOMINAL PAIN. PT IS THEN TRANSPORTED FOR TESTING AT END OF SESSION. TOTAL TX TIME=15 MIN ANSELMO EUGENE, INSTRUCTIONAL MANAGER
--- NOTE | 2020-09-16 09:00 | NUR ---
OT NOTE PATIENT SEEN 1:1 OT THIS DATE 15 MINUTES. PATIENT IDENTIFIED BY NAME AND DATE OF . PATIENT REPORTS 3/10 PAIN IN ABDOMIN THIS DATE. PATIENT COMPLETED LB DRESSING TASK CGA TO DON SOCKS WITH PATIENT ABLE TO CROSS LEGS FOR WORK SIMPLIFICATION. EDUCATED PATIENT BENEFITS USE AE ESPCIALLY TO RESEARCH LABORATORY TECHNICIAN ITEMS FROM FLOOR WITH CATECHIST EDUCATION COMPLETED AND PROVIDED. PATIENT DECLINED TO USE FWW WITH FUNCTIONAL AMBULATION AND COMPLETED HAND HELD ASSIST CGA IN ROOM SHORT DISTANCE. PATIENT IN BED END OF SESSION THIS DATE. PATIENT CALL LIGHT WITHIN REACH. CONTINUE TOWARDS PLAN OF CARE. CHRISTEN RUBIO/Debra
--- NOTE | 2020-09-16 11:58 | NUR ---
PT STILL OFF FLOOR. PULLED LOVENOX TO GIVE. WILL MONITOR.
[2020-09-16 12:00] VITALS: BP 101/69
--- NOTE | 2020-09-16 14:03 | NUR ---
DR. DORSEY'S OFFICE NOTIFIED OF CONSULT.
--- NOTE | 2020-09-16 15:44 | NUR ---
PHYSICAL THERAPY CO-SIGN I approve of the Physical Therapy notes written above. Sabrina Ross PT
[2020-09-16 16:00] VITALS: BP 104/63
[2020-09-16 20:00] VITALS: BP 108/70
--- NOTE | 2020-09-16 20:30 | NUR ---
AWAKE; RESTING IN BED. IV FLUIDS INFUSING INTO RIGHT ANTECUBITAL WITHOUT DIFFICULTY; SITE ASYMPTOMATIC. PT. VOICES NO C/O AT THIS TIME. CALL LIGHT WITHIN REACH.
--- NOTE | 2020-09-16 21:34 | NUR ---
PT. HAD A LARGE GREEN EMESIS. MEDICATED WITH ZOFRAN.
[2020-09-17] VITALS: BP 111/72
--- NOTE | 2020-09-17 04:00 | NUR ---
HAD A BOUT OF GREEN DIARRHEA. NO FURTHER N/V. ASSISTED BACK TO BED. CALL LIGHT WITHIN REACH.
[2020-09-17 06:35] LABS: HEMATOCRIT 36.7 % (42.0-52.0); MEAN CELL VOLUME 88.2 fl (80.0-94.0); MEAN CORPUSCULAR HGB 29.1 pg (27.0-31.0); MEAN PLATELET VOLUME 8.6 fl (9.6-12.3); PLATELET COUNT AUTOMATED 473 10*3/uL (130-400); RED BLOOD COUNT 4.16 10*6/uL (4.50-5.90); RED CELL DISTRI WIDTH 13.8 % (0-14.5); WHITE BLOOD COUNT 8.4 10*3/uL (4.8-10.8)
[2020-09-17 06:54] LABS: ALBUMIN 2.1 gm/dl (3.1-4.5); BUN 42 mg/dl (7-24); CHLORIDE 92 mmol/L (98-107); CREATININE 1.27 mg/dL (0.70-1.30); POTASSIUM 3.6 mmol/L (3.5-5.1); SGOT/AST 16 IU/L (3-35); SGPT/ALT 31 U/L (12-78); SODIUM 129 mmol/L (136-145)
[2020-09-17 06:55] LABS: ALKALINE PHOSPHATASE 86 U/L (45-117)
[2020-09-17 07:23] LABS: BASOPHILS 1 % (0-1); BURR CELLS MODERATE; OVALOCYTES FEW; PLATELET SUFFICIENCY HIGH (NORMAL); POLYCHROMASIA SLIGHT; TOTAL CELLS COUNTED 100 #CELLS
[2020-09-17 07:24] LABS: ROULEAUX SLIGHT
[2020-09-17 08:00] VITALS: BP 100/66
[2020-09-17 12:00] VITALS: BP 108/73
[2020-09-17 16:00] VITALS: BP 93/60
[2020-09-17 20:00] VITALS: BP 93/61
--- NOTE | 2020-09-17 20:00 | NUR ---
AWAKE & ALERT RESTING IN BED. IV FLUIDS INFUSING INTO RIGHT ANTECUBITAL; SITE ASYMPTOMATIC. PT. VOICES NO C/O AT THIS TIME. CALL LIGHT WITHIN REACH. BED ALARM ON; BED IN LOW LOCKED POSITION.
--- NOTE | 2020-09-17 23:01 | NUR ---
MEDICATED WITH RESTORIL FOR C/O INSOMNIA.
[2020-09-18] VITALS: BP 101/62
--- NOTE | 2020-09-18 | NUR ---
RESTING IN BED WITH EYES CLOSED; RESTORIL EFFECTIVE.
[2020-09-18 06:08] LABS: BASO % 0.6 % (0.0-1.0); EOS # 0.2 10*3/uL (0.0-0.4); EOS % 2.9 % (1.0-4.0); HEMATOCRIT 33.1 % (42.0-52.0); LYMPH # 0.8 10*3/uL (1.3-4.4); MEAN CELL VOLUME 89.9 fl (80.0-94.0); MEAN CORPUSCULAR HGB 29.6 pg (27.0-31.0); MEAN CORPUSCULAR HGB CONC 32.9 g/dl (33.0-37.0); MEAN PLATELET VOLUME 8.8 fl (9.6-12.3); MONO # 1.4 10*3/uL (0.1-1.0); MONO % 19.2 % (3.0-9.0); NEUT # 4.7 10*3/uL (2.3-7.9); PLATELET COUNT AUTOMATED 461 10*3/uL (130-400); RED BLOOD COUNT 3.68 10*6/uL (4.50-5.90); RED CELL DISTRI WIDTH 13.7 % (0-14.5); WHITE BLOOD COUNT 7.2 10*3/uL (4.8-10.8)
[2020-09-18 06:27] LABS: CHLORIDE 94 mmol/L (98-107); POTASSIUM 3.3 mmol/L (3.5-5.1); SODIUM 131 mmol/L (136-145)
[2020-09-18 06:38] LABS: BUN 30 mg/dl (7-24)
[2020-09-18 08:00] VITALS: BP 110/70
--- NOTE | 2020-09-18 11:44 | NUR ---
MORPHINE GIVEN PER PATIENT REQUEST FOR ABDOMINAL PAIN RATING A 3/10.
[2020-09-18 12:00] VITALS: BP 119/79
[2020-09-18 14:00] VITALS: BP 119/79
--- NOTE | 2020-09-18 15:30 | NUR ---
REPORT RECEIVED, ASSUMED CARE OF PATIENT.
[2020-09-18 16:00] VITALS: BP 115/73
[2020-09-18 20:00] VITALS: BP 109/61
--- NOTE | 2020-09-18 20:00 | NUR ---
Neurological: awake,alert,oriented Respiratory: easy, regular,no distress Breath sounds: clear Cough: none Cardiovascular: no problem Gastrointestinal: nausea/vomiting Genito/Urinary: no problem Musculoskeketal: AMBULATORY MICK DÍAZ
--- NOTE | 2020-09-18 23:38 | NUR ---
24 HR chart check completed.
--- NOTE | 2020-09-18 23:42 | NUR ---
C/O ABD PAIN. MEDICATED PER ORDER.
[2020-09-19] VITALS (7 sets, daily range): BP systolic 96–111; BP diastolic 65–72
--- NOTE | 2020-09-19 00:30 | NUR ---
NO FURTHER C/O PAIN VOICED. REMAINS NPO.
--- NOTE | 2020-09-19 07:00 | NUR ---
ARRIVED ON SHIFT, RECEIVED REPORT FROM OFFGOING NURSE, ASSUMED CARE OF PATIENT.
--- NOTE | 2020-09-19 07:35 | NUR ---
INTRODUCED SELF TO PATIENT, BED IN LOW POSITION, SIDE RAILS UP X 2 FOR TURNING AND REPOSITIONING, CALL LIGHT WITHIN REACH, NO NEEDS VOICED AT THIS TIME, WHITE BOARD UPDATED. ASHELY TAPIA BSN, RN
--- NOTE | 2020-09-19 08:49 | NUR ---
Shift chart check completed.
--- NOTE | 2020-09-19 09:00 | NUR ---
case management visits with patient, he will be discharged to [facility] when medically stable, patient in agreement. case management will follow for any other needs
--- NOTE | 2020-09-19 11:24 | NUR ---
OT NOTE Attempted to see pt this A.M. for OT session and upon arrival pt was out of the room for medical procedure. Will check back at a later time/date and continue with POC as able. JOANNE Brooke/Debra
--- NOTE | 2020-09-19 11:32 | NUR ---
PHYSICAL THERAPY Patient presented to therapy in in supine with head of bed elevated and bed alarm on. Patient gives informed consent for treatment. Identified by name and on wristband. Patient reports minimal pain in the abdominal area. Patient transferred supine <> sit SBA. Patient sat on EOB with SBA. Patient performed STS from EOB with SBA. Patent ambulated with Standard Cane and Close Supervision for 140' x 1 with no LOB and no increased pain. Patient transferred back to supine in bed with SBA. Patient was left in supine in bed with head of bed elevated and call light within reach. Patient was 1:1 with this PBX TEACHER for 16 minutes total. VAL MURILLO PBX TEACHER
--- NOTE | 2020-09-19 12:56 | NUR ---
Patient updated clinicals faxed to Theresa at [facility]. Patient is accepted, all requirements met. He is ok to go when medically stable for discharge.
--- NOTE | 2020-09-19 13:40 | NUR ---
OT NOTE Pt was seen this P.M. 1:1 for 15 minute OT session. Upon arrival pt was supine in bed. Pt identified by name and and had no complaints at this time. Pt transferred supine to sit EOB with SBA. While sitting EOB pt donned B socks with SBA. Sit to stand completed from bed level with SBA followed by functional mobility to the bathroom with SBA. There he transferred on/off standard commode with SBA and use of grab bar. He then stood sink side while washing his hands with SBA. Functional mobility completed back to the EOB. Challenged pt's dynamic standing balance while weight shifting, crossing midline, and reaching over all planes. Pt was able to maintain F+/G- standing balance. Pt transferred back into bed sit to supine with SBA. There he was left with call light in hand, tray table in place, and bed alarm activated for safety. Continue with POC as able. JOANNE Brooke/Debra
--- NOTE | 2020-09-19 15:18 | NUR ---
patient not qualifying for ambulance transport. will call steward/steward[employer] dining car with time of roll picker.
--- NOTE | 2020-09-19 16:34 | NUR ---
[facility] TO PICK PT UP AT [phone] FOR TRAN[facility].
--- NOTE | 2020-09-19 18:23 | NUR ---
CALL PLACED TO [facility], SPOKE WITH KANDACE MORTENSEN, NURSE TO NURSE REPORT GIVEN.
--- NOTE | 2020-09-19 19:26 | NUR ---
Discharge instructions reviewed with patient/family. Patient receptive and verbalizes understanding. Follow-up care arranged. Written instructions given to patient, IV REMOVED TAKEN OUT VIA STRETCHER, BY [facility]. ASHELY TAPIA
--- NOTE | 2020-09-20 07:40 | NUR ---
OCCUPATIONAL THERAPY CO-SIGN I approve of the Occupational Therapy notes written above. ERIC CHIU, OTR/L
--- NOTE | 2020-09-20 07:41 | NUR ---
PHYSICAL THERAPY CO-SIGN I approve of the Physical Therapy notes written above. Sabrina Ross PT
== END 2020-09-19 19:26 | disposition other institution (70) | DRG 871 ==
LOC: ED 08:57 → 5E 10:58 → EDHOLD 10:58 → 5E 13:25
PROVIDERS: Emergency Medicine; Hospitalist; Internal Medicine; Physician Assistant; Student in an Organized Health Care Education/Training Program; ADMIT Internal Medicine; ATTEND Internal Medicine
PROC: 0W9G3ZZ Drainage of Peritoneal Cavity, Percutaneous Approach (ICD-10-PCS; 2020-09-12)
PROC: 0DB68ZX Excision of Stomach, Via Natural or Artificial Opening Endoscopic, Diagnostic (ICD-10-PCS; principal; 2020-09-19)
PROC: 0DBN8ZX Excision of Sigmoid Colon, Via Natural or Artificial Opening Endoscopic, Diagnostic (ICD-10-PCS; principal; 2020-09-19)
PROC: 0DBC8ZX Excision of Ileocecal Valve, Via Natural or Artificial Opening Endoscopic, Diagnostic (ICD-10-PCS; principal; 2020-09-19)
DX: A41.9 Sepsis, unspecified organism (principal); N17.0 Acute kidney failure with tubular necrosis; K65.2 Spontaneous bacterial peritonitis; E87.1 Hypo-osmolality and hyponatremia; R65.20 Severe sepsis without septic shock; D47.3 Essential (hemorrhagic) thrombocythemia; R73.9 Hyperglycemia, unspecified; E87.8 Other disorders of electrolyte and fluid balance, not elsewhere classified; E83.41 Hypermagnesemia; K21.9 Gastro-esophageal reflux disease without esophagitis; F32.9 Major depressive disorder, single episode, unspecified; M48.02 Spinal stenosis, cervical region; K70.31 Alcoholic cirrhosis of liver with ascites; D64.89 Other specified anemias; E02 Subclinical iodine-deficiency hypothyroidism; Z20.828 Contact with and (suspected) exposure to other viral communicable diseases; K29.70 Gastritis, unspecified, without bleeding; K57.30 Diverticulosis of large intestine without perforation or abscess without bleeding; K59.00 Constipation, unspecified; Z88.0 Allergy status to penicillin; Z89.022 Acquired absence of left finger(s); Z87.891 Personal history of nicotine dependence; Z83.3 Family history of diabetes mellitus; Z82.49 Family history of ischemic heart disease and other diseases of the circulatory system; Z82.0 Family history of epilepsy and other diseases of the nervous system; Z84.89 Family history of other specified conditions; Z79.82 Long term (current) use of aspirin; Z79.899 Other long term (current) drug therapy

== ENCOUNTER 2020-09-21 11:55 | Emergency (ER) | payer MEDICARE ==
[~2020-09-21] VITALS: Ht 167.6 cm; Wt 68.0 kg
== END 2020-09-21 16:22 | disposition home or self-care (01) ==
LOC: ED 11:55
DX: R10.9 Unspecified abdominal pain (principal); R19.7 Diarrhea, unspecified; Z79.82 Long term (current) use of aspirin; Z79.899 Other long term (current) drug therapy

== ENCOUNTER 2020-09-22 16:12 | Observation (INO) | payer MEDICARE ==
[~2020-09-22] VITALS: Ht 170.1 cm; Wt 69.6 kg
[~2020-09-22 16:12] MED LIST changes: +ALDACTONE25 M1 PO; +BAYER ASPIRIN C81 MG PO; +COLACE100 MG PO
[2020-09-22 16:16] VITALS: BP 119/71
[2020-09-22 17:15] LABS: BASO # 0.1 10*3/uL (0.0-0.1); BASO % 0.5 % (0.0-1.0); EOS # 0.2 10*3/uL (0.0-0.4); EOS % 1.7 % (1.0-4.0); HEMATOCRIT 39.7 % (42.0-52.0); LYMPH # 1.3 10*3/uL (1.3-4.4); LYMPH % 13.7 % (27.0-41.0); MEAN CELL VOLUME 89.6 fl (80.0-94.0); MEAN CORPUSCULAR HGB 28.7 pg (27.0-31.0); MEAN PLATELET VOLUME 8.6 fl (9.6-12.3); MONO # 1.4 10*3/uL (0.1-1.0); MONO % 13.9 % (3.0-9.0); NEUT # 6.8 10*3/uL (2.3-7.9); NEUT % 69.4 % (47.0-73.0); PLATELET COUNT AUTOMATED 557 10*3/uL (130-400); RED BLOOD COUNT 4.43 10*6/uL (4.50-5.90); WHITE BLOOD COUNT 9.7 10*3/uL (4.8-10.8)
[2020-09-22 17:29] LABS: ACT PARTIAL THROMBO TIME 29.3 SECONDS (20.0-32.1); INTERNATIONAL NORM RATIO 1.2 (2.0-3.5)
[2020-09-22 17:33] LABS: ALBUMIN 2.1 gm/dl (3.1-4.5); ALKALINE PHOSPHATASE 104 U/L (45-117); BUN 11 mg/dl (7-24); CHLORIDE 98 mmol/L (98-107); CREATININE 0.79 mg/dL (0.70-1.30); LIPASE 236 U/L (73-393); POTASSIUM 3.6 mmol/L (3.5-5.1); SGOT/AST 27 IU/L (3-35); SGPT/ALT 24 U/L (12-78); SODIUM 130 mmol/L (136-145); TOTAL PROTEIN 6.2 gm/dL (6.4-8.2)
[2020-09-22 17:35] LABS: TROPONIN I < 0.015 ng/ml (<0.045)
[2020-09-22 20:25] LABS: BILIRUBIN Negative (Negative); BLOOD Negative (Negative); COLOR Yellow (Yellow); GLUCOSE Negative (Negative); KETONE Negative (Negative); LEUKO ESTERASE Negative (Negative); NITRITE Negative (Negative); PH 6.5 (4.5-8.0); SPECIFIC GRAVITY >= 1.030 (1.001-1.030); UROBILINOGEN 0.2 E.U./dl (0.0-1.0)
[2020-09-22 20:59] VITALS: BP 116/70
[2020-09-22 21:00] LABS: CLARITY Cloudy (Clear)
[2020-09-22 21:03] LABS: RBC 0-2 rbc/hpf (0-2)
[2020-09-23] VITALS: BP 111/69
[2020-09-23 06:48] LABS: HEMATOCRIT 39.5 % (42.0-52.0); MEAN CELL VOLUME 88.4 fl (80.0-94.0); MEAN CORPUSCULAR HGB 28.6 pg (27.0-31.0); MEAN CORPUSCULAR HGB CONC 32.4 g/dl (33.0-37.0); MEAN PLATELET VOLUME 8.6 fl (9.6-12.3); PLATELET COUNT AUTOMATED 543 10*3/uL (130-400); RED BLOOD COUNT 4.47 10*6/uL (4.50-5.90); RED CELL DISTRI WIDTH 14.1 % (0-14.5); WHITE BLOOD COUNT 11.4 10*3/uL (4.8-10.8)
[2020-09-23 06:52] LABS: INTERNATIONAL NORM RATIO 1.2 (2.0-3.5)
[2020-09-23 07:02] LABS: ALBUMIN 2.1 gm/dl (3.1-4.5); ALKALINE PHOSPHATASE 118 U/L (45-117); BUN 11 mg/dl (7-24); CHLORIDE 97 mmol/L (98-107); CREATININE 0.91 mg/dL (0.70-1.30); POTASSIUM 4.3 mmol/L (3.5-5.1); SGOT/AST 33 IU/L (3-35); SGPT/ALT 31 U/L (12-78); SODIUM 132 mmol/L (136-145)
[2020-09-23 07:21] LABS: BASOPHILS 1 % (0-1); BURR CELLS FEW; OVALOCYTES FEW; PLATELET SUFFICIENCY HIGH (NORMAL); POLYCHROMASIA SLIGHT; SCHISTOCYTES FEW; TOTAL CELLS COUNTED 100 #CELLS
[2020-09-23 08:00] VITALS: BP 98/69
[2020-09-23 12:00] VITALS: BP 110/75
[2020-09-23 16:00] VITALS: BP 104/79
[2020-09-23] MEDS ORDERED: LASIX40 MG PO (16:37)
[2020-10-17] MEDS ORDERED: OXYCODONE5 M1 PO (13:33)
[2020-10-17] MEDS ORDERED: Oscal,Oyster S500 MG PO (13:35)
== END 2020-09-23 20:14 | disposition other institution (70) ==
LOC: ED 16:12 → EDHOLD 19:14 → 5E 22:24
PROVIDERS: Emergency Medicine; Internal Medicine; ADMIT Internal Medicine; ATTEND Internal Medicine
DX: R18.8 Other ascites (principal); E87.1 Hypo-osmolality and hyponatremia; R79.82 Elevated C-reactive protein (CRP); R70.0 Elevated erythrocyte sedimentation rate; D47.3 Essential (hemorrhagic) thrombocythemia; D64.9 Anemia, unspecified; E43 Unspecified severe protein-calorie malnutrition; R10.9 Unspecified abdominal pain; R93.3 Abnormal findings on diagnostic imaging of other parts of digestive tract; R73.9 Hyperglycemia, unspecified; Z20.828 Contact with and (suspected) exposure to other viral communicable diseases

== ENCOUNTER → 2020-10-05 | Outpatient (CLI) | payer MEDICARE ==
[~2020-10-05] MED LIST changes: +AMIODARONE900 MG/501 IV; +CEFTRIAXON2 GM/50 ML IV; +HEPARIN 2525000 UNI1 IV; +LASIX40 MG PO; +NOREPINEPH IV; +OXAYDO7.5 MG PO; +OXYCODONE5 M1 PO; +Oscal,Oyster S500 MG PO
== END | disposition home or self-care (01) ==
LOC: LAB 04:58 → EDSTATUS 09:30
PROVIDERS: ATTEND Internal Medicine
DX: K70.31 Alcoholic cirrhosis of liver with ascites (principal); Z88.0 Allergy status to penicillin

== ENCOUNTER → 2020-10-17 | Outpatient (CLI) | payer MEDICARE, MEDICAID | END | disposition home or self-care (01) | LOC: COVID19 12:50 | PROVIDERS: ATTEND Surgery | DX: Z01.812 Encounter for preprocedural laboratory examination (principal); Z20.828 Contact with and (suspected) exposure to other viral communicable diseases ==

== ENCOUNTER 2020-10-18 21:22 | Inpatient (IN) | payer MEDICARE, MEDICAID ==
[~2020-10-18] VITALS: Ht 170.1 cm; Wt 61.2 kg
[~2020-10-18 21:22] MED LIST changes: -AMIODARONE900 MG/501 IV; -CEFTRIAXON2 GM/50 ML IV; -HEPARIN 2525000 UNI1 IV; -NOREPINEPH IV; -OXAYDO7.5 MG PO
[2020-10-18 21:31] VITALS: BP 98/68
--- NOTE | 2020-10-18 21:47 | NUR ---
Pt is alert x2.Pt confused on time and will just shoot out nurse.Pt has coarse and dimnshed lung sounds at this time and bs x4 with slight distended abdomen.Pt states he has constant nausea at this time.
[2020-10-18 21:49] VITALS: BP 98/78
--- NOTE | 2020-10-18 22:00 | NUR ---
Pt to ct scan at this time.Orders for zofran 4mg per md.
--- NOTE | 2020-10-18 22:18 | NUR ---
Pt back from ct scan at this time.
--- NOTE | 2020-10-18 22:19 | NUR ---
Family updated on pt status at this time.
[2020-10-18 22:22] LABS: HEMATOCRIT 47.6 % (42.0-52.0); MEAN CELL VOLUME 86.5 fl (80.0-94.0); MEAN CORPUSCULAR HGB CONC 32.4 g/dl (33.0-37.0); MEAN PLATELET VOLUME 8.7 fl (9.6-12.3); PLATELET COUNT AUTOMATED 612 10*3/uL (130-400); RED CELL DISTRI WIDTH 14.5 % (0-14.5)
--- NOTE | 2020-10-18 22:30 | NUR ---
Pt had emesis at ct scan.Pt has yellow bile color in hair.Pt turnd linens changed and cleaned up at this time.No open wounds notedob buttock but feet are flaky and discolored.
[2020-10-18 22:33] LABS: ACT PARTIAL THROMBO TIME 23.6 SECONDS (20.0-32.1); INTERNATIONAL NORM RATIO 1.1 (2.0-3.5)
[2020-10-18 22:40] LABS: ALBUMIN 2.7 gm/dl (3.1-4.5); CREATININE 2.3 mg/dL (0.70-1.30); POTASSIUM 5.2 mmol/L (3.5-5.1); TOTAL PROTEIN 8.2 gm/dL (6.4-8.2)
[2020-10-18 22:43] LABS: PLATELET SUFFICIENCY HIGH (NORMAL); TOTAL CELLS COUNTED 100 #CELLS
[2020-10-18 22:50] VITALS: BP 91/60
--- NOTE | 2020-10-18 23:00 | NUR ---
aware of nausea and orders for reglan at this time.
--- NOTE | 2020-10-18 23:20 | NUR ---
Ng 14 placed in left nare.
--- NOTE | 2020-10-18 23:30 | NUR ---
in to see pt see pt and ng tube is ok to use and place on low intermittent suction at this time.Aware that pt had large amount of bile emesis when placing tube at this time.
[2020-10-18 23:46] VITALS: BP 87/45
--- NOTE | 2020-10-18 23:58 | NUR ---
in to see pt.
[2020-10-19] VITALS (33 sets, daily range): BP systolic 67–111; BP diastolic 37–76
--- NOTE | 2020-10-19 00:08 | NUR ---
Pt has left nare ng in place which is about half full and draining large amout of light brown bile.
--- NOTE | 2020-10-19 00:32 | NUR ---
No open wounds noted but feet and callused and flaky at this time.
--- NOTE | 2020-10-19 01:04 | NUR ---
updated on labs and aware of ng drainage at this time.
--- NOTE | 2020-10-19 01:40 | NUR ---
aware of pt with anxiety and resps in the 30s.
--- NOTE | 2020-10-19 01:49 | NUR ---
updated on pt status.
--- NOTE | 2020-10-19 02:16 | NUR ---
Pt very anxious at this time and medicated with ativan.
--- NOTE | 2020-10-19 02:44 | NUR ---
Mutiple pulse oxs placed on finger and currently placed on left ear st this time and 98 percent on 3 liters.
--- NOTE | 2020-10-19 03:00 | NUR ---
Pt sleeping after ativan given.
--- NOTE | 2020-10-19 03:05 | NUR ---
Consult called and placed for Blayne Salamanca for office.Stated they would place consult through in the morning.
--- NOTE | 2020-10-19 04:05 | NUR ---
aware of blood pressure in the 70s and aware of ng drainage of about 1450.Aware of pt bladder scan of 109 at this time.Stated he would order more iv fluids at this time.
--- NOTE | 2020-10-19 04:06 | NUR ---
aware of resps in the 30s at this time.
--- NOTE | 2020-10-19 04:21 | NUR ---
Pt turned and repostioned in bed at this time.
--- NOTE | 2020-10-19 04:21 | NUR ---
Pt also has bandaid under right abdomen which has nothing underneath at this time.
--- NOTE | 2020-10-19 05:15 | NUR ---
aware of blood pressure in the 70s systolic.Orders to clamp ng at this time and to keep iv fluids at 100 cc an hour.
--- NOTE | 2020-10-19 06:06 | NUR ---
in to see pt and aware of blood pressure in the 70s.Stated he would order 500cc bolus at thus time.
[2020-10-19 06:14] LABS: RED CELL DISTRI WIDTH 14.6 % (0-14.5)
--- NOTE | 2020-10-19 06:29 | NUR ---
Pt turned and pulled up into the bed at this time.
--- NOTE | 2020-10-19 06:41 | NUR ---
Spoke with aware of pt still with decreased blood pressure in the 60s and 70s systolic.Ok to finish off iv fluids at this time.
--- NOTE | 2020-10-19 06:50 | NUR ---
Tae Salamanca in to see pt aware of blood pressure in the 60s to 70s,Orders for levophed and map above 65.
--- NOTE | 2020-10-19 07:15 | NUR ---
REPORT FROM STEPHEN PRABHAKAR AT THIS TIME.
--- NOTE | 2020-10-19 07:20 | NUR ---
PATIENT HAD A LARGE EMESIS ABOUT 300 ML OUTPUT. NG TUBE HAS BEEN PLACED BACK ONTO INTERMITTENT SUCTION. DR VELASCO WAS HERE AND IS TALKING ABOUT POSSIBLE PATIENT TRANSFER TO ANOTHER HOSPITAL.
--- NOTE | 2020-10-19 07:30 | NUR ---
updated on pt status and aware of ct reults and intake and output for the night.
--- NOTE | 2020-10-19 07:40 | NUR ---
Transfer of care to [facility].
--- NOTE | 2020-10-19 08:39 | NUR ---
DR MONACO IN ROOM AT THIS TIME SETTING UP FOR CENTRAL LINE INSERTION.
[2020-10-19 08:40] LABS: HEMATOCRIT 44.2 % (42.0-52.0); MEAN CELL VOLUME 85.3 fl (80.0-94.0); MEAN CORPUSCULAR HGB 28.2 pg (27.0-31.0); PLATELET COUNT AUTOMATED 518 10*3/uL (130-400); RED BLOOD COUNT 5.18 10*6/uL (4.50-5.90); WHITE BLOOD COUNT 5.8 10*3/uL (4.8-10.8)
[2020-10-19 09:09] LABS: ATYPICAL LYMPHS 1 % (0-0); PLATELET SUFFICIENCY HIGH (NORMAL); TOTAL CELLS COUNTED 100 #CELLS
--- NOTE | 2020-10-19 10:01 | NUR ---
PATIENT TO ULTRASOUND AT THIS TIME FOR PARACENTESIS.
--- NOTE | 2020-10-19 11:05 | NUR ---
DR MONACO WANTED TO TRANSFER PATIENT TO ANOTHER HOSPITAL. PATIENT WANTED TO GO TO [facility] BUT THEY SAID THEY DO NOT HAVE ANY BEDS. DR MONACO STATED POSSIBLY [facility] OR [facility]. PATIENT COULD NOT DECIDE AND STATED TO CALL . STATES SHE CANNOT DECIDE EITHER. STATED TO PATIENTS IF IT IS OK WITH THEM OT LET THE DR DECIDE. SHE STATED THAT WAS FINE. PATIENT ALSO GAVE VERBAL CONSENT FOR TRANSFER AND FOR TRANSFER OF MEDICAL RECORDS.
[2020-10-19 11:09] LABS: CREATININE 2.59 mg/dL (0.70-1.30)
[2020-10-19 11:21] LABS: POTASSIUM 4.2 mmol/L (3.5-5.1)
[2020-10-19 13:04] LABS: BODY FLUID WBC 120 /uL
--- NOTE | 2020-10-19 13:46 | NUR ---
NOTIFIED OF +BC FROM 10/18 [facility]. SAID HE WOULD ORDER ABX
--- NOTE | 2020-10-19 14:01 | NUR ---
NEW LEVOPHED PULLED FOR CONTINUOUS INFUSION ON PATIENT. MIXED AND HUNG.
[2020-10-19 14:03] LABS: BF LYMPHOCYTES 27 %; BF NEUTROPHILS 1 %
[2020-10-19 14:04] LABS: BF MACROPHAGES 33 %; BF MESOTHELIALS 36 %
[2020-10-19] MEDS ORDERED: OXAYDO7.5 MG PO (14:41)
--- NOTE | 2020-10-19 14:43 | NUR ---
MED REC UPDATED VIA CLAIM HISTORY.
--- NOTE | 2020-10-19 15:15 | NUR ---
CURRENTLY WAITING FOR A BED AT [facility] STILL.
--- NOTE | 2020-10-19 16:29 | NUR ---
NG TUBE PLACED INTO LEFT NARE BY QUITA CARDENAS RN. 16G NG TUBE.
--- NOTE | 2020-10-19 16:31 | NUR ---
NG TUBE DISPLACED. 16G NG TUBE PLACED IN LEFT NARE.
--- NOTE | 2020-10-19 19:05 | NUR ---
REPORT GIVEN TO TERRANCE PRABHAKAR AT THIS TIME.
--- NOTE | 2020-10-19 19:56 | NUR ---
PT REPORT FROM PRIOR SHIFT RN
--- NOTE | 2020-10-19 19:56 | NUR ---
PT REPORT RECEIVED FROM PRIOR SHIFT RN
--- NOTE | 2020-10-19 21:12 | NUR ---
PT RESTING QUIETLY NO DISTRESS AT THIS TIME
--- NOTE | 2020-10-19 21:48 | NUR ---
PT INCONTINENT OF STOOL. PT CLEANED AND LINENS CHANGED.
--- NOTE | 2020-10-19 22:18 | NUR ---
PT UNABLE TO PROVIDE URINE SAMPLE. RESTING QUIETLY. NO BED ASSIGNMENT FROM [facility]. PT AWARE
--- NOTE | 2020-10-19 22:51 | NUR ---
UPDATED REPORT GIVEN TO ONE CALL AT [facility]. RN NOTES THAT BED MAY NOT BE AVAILABLE UNTIL TOMORROW MORNING.
--- NOTE | 2020-10-19 23:22 | NUR ---
NURSE TO NURSE REPORT GIVEN TO THIS RN. PT RESTING IN BED.
--- NOTE | 2020-10-19 23:27 | NUR ---
PT AWAITING TRANSFER TO [facility] UPON ROOM ASSIGNMENT.[facility] CALLED EARLIER AND BELIEVE WILL NOT HAVE A ROOM FOR PT UNTIL MORNING.
[2020-10-20] VITALS (15 sets, daily range): BP systolic 74–104; BP diastolic 50–68
--- NOTE | 2020-10-20 01:15 | NUR ---
PT HAD EPISODE OF LIQUID YELLOW/BROWN STOOL.LINENS CHANGED.PT HAVING EPISODE OF YELLOW EMESIS.NG TUBE SET TO INTERMITTENT SUCTION.
--- NOTE | 2020-10-20 01:16 | NUR ---
PT IS STILL HAVING EMISIS WITH NG TUBE IN PLACE. NG AUSCULTATED FOR PLACEMENT AND NOTHING COULD BE HEARD. DR PERALTA CALLED REGARDING PLACEMENT AND NEW ORDER RECEIVED. WILL REASSESS.
--- NOTE | 2020-10-20 02:00 | NUR ---
NG TUBE ADVANCED AND SITE AUSCULTATED. NG TUBE DRAINING LIGHT BROWNISH/YELLOW LIQUID LARGE AMOUNT DRAINING.
--- NOTE | 2020-10-20 02:33 | NUR ---
PT REPOSITIONED IN BED.LINENS CHANGED.APPROX 1100CC NG OUTPUT.
--- NOTE | 2020-10-20 03:38 | NUR ---
NEW BAG OF LEVOPHED INITATED AND INFUSING @ 16MCG/MIN.
--- NOTE | 2020-10-20 06:30 | NUR ---
PT HAD APPROX 800CC YELLOW/BROWN OUTPUT FROM NG TUBE.PT HAD EPISODE OF WATERY BROWN STOOL.LINENS CHANGED.PT REPOSITIONED.PT HAS SMALL AREA OF REDNESS ON COCCYX, BLANCHABLE.PT PROVIDED URINAL.PT HAD DARK EFFIE URINE OUTPUT OF APPROX 50CC.INFUSION OF LEVOPHED CONTINUES.
[2020-10-20 06:47] LABS: HEMATOCRIT 39.9 % (42.0-52.0); MEAN CELL VOLUME 85.6 fl (80.0-94.0); MEAN CORPUSCULAR HGB 28.8 pg (27.0-31.0); MEAN CORPUSCULAR HGB CONC 33.6 g/dl (33.0-37.0); RED BLOOD COUNT 4.66 10*6/uL (4.50-5.90); RED CELL DISTRI WIDTH 14.7 % (0-14.5); WHITE BLOOD COUNT 5.8 10*3/uL (4.8-10.8)
[2020-10-20 06:56] LABS: PLATELET COUNT AUTOMATED 340 10*3/uL (130-400)
[2020-10-20 07:01] LABS: ALBUMIN 2.2 gm/dl (3.1-4.5); CREATININE 1.67 mg/dL (0.70-1.30); POTASSIUM 3.4 mmol/L (3.5-5.1); TOTAL PROTEIN 5.9 gm/dL (6.4-8.2)
--- NOTE | 2020-10-20 08:01 | NUR ---
PT REPOSITIONED.URINE DARK EFFIE...SENT FOR U/A. VITALS STABLE. MOUTH SWABBED WITH WATER SPONGE PER PT REQUEST.---ADY RIVAS RN
[2020-10-20 08:08] LABS: BURR CELLS FEW; PLATELET SUFFICIENCY NORMAL (NORMAL); TOTAL CELLS COUNTED 100 #CELLS; TOXIC GRANULATION MODERATE; VACUOLATION OF NEUTROPHILS MODERATE
[2020-10-20 08:10] LABS: BILIRUBIN Negative (Negative); BLOOD Negative (Negative); CLARITY Cloudy (Clear); COLOR Dark Yellow (Yellow); GLUCOSE Negative (Negative); KETONE Negative (Negative); LEUKO ESTERASE Trace (Negative); NITRITE Negative (Negative); UROBILINOGEN 0.2 E.U./dl (0.0-1.0)
[2020-10-20 08:20] LABS: BACTERIA 1+; MUCOUS TRACE
--- NOTE | 2020-10-20 09:27 | NUR ---
SPOKE WITH [facility] TWICE REGARDING THIS PT AND GAVE THEM AN UPDATED STATUS.THEY ARE LOOKING FOR A BED FOR HIM. ---ADY RIVAS RN
--- NOTE | 2020-10-20 12:05 | NUR ---
PT'S BP HAS BEEN LOWERING TO 70'S SYSTOLIC WELL AT HEARTRATE INCREASING.IV LEVOPHED DECREASED TO 9MCG AND IV FLUID NS BOLUS X2 LITERS BEING GIVEN PER DR MONACO ORDER.EKG DONGE. SEE VITALS LISTED UNDER VITAL SIGNS.PT REMAINS ALERT/ORIENTED XX 3 . DENIES PAIN. PLACED ON BEDPAN FOR BM. NG SUCTIONING YELLOW.DUE TO PT'S INSTABILITY,DR MONACO CALLING [facility] TO SEE ABOUT AIR TRANSPORT INSTEAD.----ADY RIVAS RN
[2020-10-20] MEDS ORDERED: AMIODARONE900 MG/501 IV (12:37)
[2020-10-20] MEDS ORDERED: CEFTRIAXON2 GM/50 ML IV (12:37)
[2020-10-20] MEDS ORDERED: NOREPINEPH IV (12:37)
[2020-10-20] MEDS ORDERED: HEPARIN 2525000 UNI1 IV (12:37)
--- NOTE | 2020-10-20 13:03 | NUR ---
[facility] HERE FOR PT AT THIS TIME.REPORT GIVEN TO EDSON PRABHAKAR AT [facility] ER.PT WAS STARTED ON CORDARONE AND HEPARIN IV DRIPS.----ADY RIVAS RN
== END 2020-10-20 13:45 | disposition short-term general hospital (02) | DRG 871 ==
LOC: ED 21:22 → EDHOLD 23:38
PROVIDERS: Hospitalist; Internal Medicine; Student in an Organized Health Care Education/Training Program; ADMIT Student in an Organized Health Care Education/Training Program; ATTEND Student in an Organized Health Care Education/Training Program
PROC: 0W9G3ZZ Drainage of Peritoneal Cavity, Percutaneous Approach (ICD-10-PCS; principal; 2020-10-19)
PROC: 02HV33Z Insertion of Infusion Device into Superior Vena Cava, Percutaneous Approach (ICD-10-PCS; 2020-10-19)
PROC: B548ZZA Ultrasonography of Superior Vena Cava, Guidance (ICD-10-PCS; 2020-10-19)
PROC: 0D9670Z Drainage of Stomach with Drainage Device, Via Natural or Artificial Opening (ICD-10-PCS; 2020-10-19)
DX: A41.9 Sepsis, unspecified organism (principal); K76.7 Hepatorenal syndrome; E43 Unspecified severe protein-calorie malnutrition; N17.0 Acute kidney failure with tubular necrosis; K65.2 Spontaneous bacterial peritonitis; K56.609 Unspecified intestinal obstruction, unspecified as to partial versus complete obstruction; E72.20 Disorder of urea cycle metabolism, unspecified; E87.1 Hypo-osmolality and hyponatremia; E87.2 Acidosis; R65.20 Severe sepsis without septic shock; D47.3 Essential (hemorrhagic) thrombocythemia; K21.9 Gastro-esophageal reflux disease without esophagitis; R73.9 Hyperglycemia, unspecified; K70.31 Alcoholic cirrhosis of liver with ascites; I95.9 Hypotension, unspecified; E83.41 Hypermagnesemia; E83.39 Other disorders of phosphorus metabolism; E87.8 Other disorders of electrolyte and fluid balance, not elsewhere classified; E87.5 Hyperkalemia; Z88.0 Allergy status to penicillin; Z83.3 Family history of diabetes mellitus; Z82.49 Family history of ischemic heart disease and other diseases of the circulatory system; Z80.9 Family history of malignant neoplasm, unspecified; Z82.0 Family history of epilepsy and other diseases of the nervous system; Z68.20 Body mass index [BMI] 20.0-20.9, adult